=== PATIENT | female | born 1945 | race Caucasian/White ===

== ENCOUNTER 2018-07-28 19:39 | Inpatient (IN) | payer MEDICARE, BC, OTHER ==
[~2018-07-28] VITALS: Ht 165.1 cm; Wt 83.5 kg
[~2018-07-28 19:39] MED LIST: DEPAKOTE 250MG250 M1 PO; ENOXAPARIN40 MG/0.1 SUBQ; IMDUR 30 MG TAB30 M1 PO; LASIX 40 MG TAB40 M2 PO; LOPRESSOR50 PO; MACRODANTIN100 MG PO; PRAVACHOL40 MG PO; TRAMADOL 50 MG50 MG PO; VITAMIN D3400 UNIT PO; WELLBUTRIN XL150 MG PO
[2018-07-28 19:47] VITALS: BP 108/57
[2018-07-28] MEDS ORDERED: BACTRIM DS TAB1 EAC1 PO (19:56)
[2018-07-28 23:31] LABS: CALCIUM 8.9 mg/dL (8.5-10.1); CREATININE 1.2 mg/dL (0.6-1.3); POTASSIUM 4.5 mmol/L (3.5-5.1)
[2018-07-28 23:35] LABS: ABSOLUTE EOSINOPHILS 0.1 thou/uL (0.0-0.7); ABSOLUTE NEUTROPHILS 7.2 thou/uL (1.6-8.1); BASOPHILS 0.5 %; HEMATOCRIT 38.7 % (37.0-47.0); HEMOGLOBIN 12.5 gm/dL (12.0-15.0); LYMPHOCYTES 10.5 %; MCH 31.4 pg (26.0-34.0); MCHC 32.4 g/dL (28.0-37.0); MCV 96.9 fL (80.0-100.0); MPV 8.5 fl. (7.2-11.1); NUCLEATED RBCS 0 /100WBC; PLATELET COUNT* 198 thou/uL (150-400); RBC 3.99 mil/uL (4.20-5.00); RDW-CV 15.2 % (10.5-14.5); WBC 9.4 thou/uL (4.0-11.0)
[2018-07-28 23:45] VITALS: BP 126/54
[2018-07-28 23:58] VITALS: BP 115/57
--- NOTE | 2018-07-29 00:45 | NUR ---
PT ADMITTED TO UNIT. PT UP WITH ASSIST X1-2 WITH CANE AND GAIT BELT. PT ON ROOM AIR. ALERT AND ORIENTED X4. PT C/O PAIN, MEDS GIVEN ORDERED. NEW ORDERS FROM [facility] GIVEN. SLEEP AID RESTARTED. SPLINT IN PLACE. SWEELING TO RT HAND, SENSATION INTACT, ARM ELEVATED. PT CAN MOVE ARM. SCD IN PLACE. FALL RISK PRECAUTIONS IN PLACE. ORTHO CONSULT TO BE CALLED IN MORNING. WILL CONTINUE TO MONITOR.
[2018-07-29 07:40] VITALS: BP 103/55
--- NOTE | 2018-07-29 17:27 | NUR ---
ASSUMED CARE OF PATIENT AT APPROX 0730. ALERT AND ORIENTED X4. ASSESSMENT COMPLETED AND CHARTED. VSS ON ROOM AIR. NO COMPLAINTS OF NAUSEA, OR SOA. PAIN HAS BEEN MANAGED WITH ORAL AND IV MEDICATIONS. SPLINT AND SEBASTIEN WRAP IN PLACE ON RIGHT WRIST. SEEN BY ORTHO ON UNIT TODAY, ORDERED A BRACE AND PT/OT. CASE MAMGALLOGEMENT CONSULTED FOR REHAB, POSSIBLE ASSISTED LIVING PLACEMENT. FALL PRECAUTIONS IN PLACE. CALL LIGHT WITHIN REACH. HOURLY ROUNDS COMPLETED. NURSING WILL CONTINUE TO MONITOR.
[2018-07-29 17:33] VITALS: BP 122/60
[2018-07-29 20:45] VITALS: BP 127/53
--- NOTE | 2018-07-30 04:49 | NUR ---
PATIENT HAS REMAINED ALERT AND ORIENTED X 4 THROUGHOUT THE SHIFT AND RESTING QUIETLY ON HOURLY ROUNDS. CALLING APPROPRIATELY FOR BATHROOM. TRANSFERS WITH CGA TO MIN GAIT BELT AND HAND HOLD. NEW SPLINT PROVIDED FOR RIGHT WRIST AT START OF SHIFT. PATIENT REPORTS IT FEELS MUCH BETTER. MEDICATION X 1 FOR PAIN OF THIS WRITING. ICE PACKS APPLIED X 1. RIGHT UE ELEVATED ON PILLOW. VITAL SIGNS STABLE. CONTINUE TO MONITOR.
[2018-07-30 07:50] VITALS: BP 133/65
--- NOTE | 2018-07-30 12:17 | EKG ---
[place] [address] ELECTROCARDIOGRAM REPORT Name: NIKOLAI BELL Room: [address] ADM IN M.R.#: [id number] Admission: 07/29/18 Attend Phys: Abraham Shukla MD Discharge: Date of : 41 Report #: [id number] THIS REPORT FOR: //name// [facility] Test Date: 2018-07-30 Test Time: 10:44:26 Pat Name: NIKOLAI BELL Department: Room: [address] Gender: F Manager Insurance: : 1945 Requested By: Fernando Anderson Order Number: [id number] MD: Philip Bro Measurements Intervals [place] Rate: 70 P: 19 IA: 187 QRS: 17 QRSD: 96 T: 35 QT: 406 QTc: 439 Interpretive Statements Sinus rhythm Abnormal R-wave progression, early transition No previous ECG available for comparison Electronically Signed On 07-30-2018 12:16:45 CDT by Philip Bro [email or web address] <ELECTRONICALLY SIGNED> By: Philip Bro MD, [facility] 07/30/18 1216 1044 1044 Philip Bro MD, FACC /EPI
--- NOTE | 2018-07-30 17:59 | NUR ---
ASSUMED CARE OF PATIENT AT APPROX 0730. ALERT AND ORIENTED X4. ASSESSMENT COMPLETED AND CHARTED. VSS ON ROOM AIR. NO COMPLAINTS OF NAUSEA OR SOA. PAIN HAS BEEN MANAGED WITH ORAL MEDICATION. PATIENT NEEDS REINFORCEMENT ON FALL PRECAUTIONS AND CALL FOR ASSISTANCE APPROPRIATELY. BRACE IN PLACE ON RIGHT ARM/HAND. PATIENT HAS TREMOR IN LEFT ARM THAT MAKES EATING AND DOING CARES DIFFICULT. PATIENT UP WITH GAIT BELT. FALL PRECAUTIONS IN PLACE. CALL LIGHT WITHIN REACH. HOURLY ROUNDS COMPLETED. NURSING WILL CONTINUE TO MONITOR.
[2018-07-30 18:14] VITALS: BP 114/58
[2018-07-30 20:15] VITALS: BP 117/54
[2018-07-31 08:15] VITALS: BP 126/59
[2018-07-31 10:22] VITALS: BP 126/59
[2018-07-31] MEDS ORDERED: NORCO 5-325 TA1 EACH PO (10:32)
--- NOTE | 2018-07-31 14:22 | NUR ---
PT.JUST WORKED WITH P.T. FOR THE FIRST TIME. SHE HAD DECLINED ON SAT. DUE TO PAIN. THERAPIST SAID SHE WOULD BE OK TO GO TO SNF FOR A SHORT STAY 1-2WEEKS OR HOME WITH HOME HEALTH. PT.LIVES ALONE. DAUGHTER,JENNIFER ,COMES EVERY DAY AT LUNCH AND HAS LUNCH WITH HER. PT.SAID SHE COOKS SOME,DOES HER OWN LAUNDRY. HAS A CLEANING LADY THAT COMES EVERY 3 WEEKS. SHE WILL DO HER LAUNDRY IF NEEDED. PT.CONTINUES TO DRIVE. DAUGHTER,JENNIFER, CALLED WHILE CM SPEAKING WITH PT. JENNIFER AND PT.FEEL IT WOULD BE BETTER TO GO TO SNF FOR SHORT STAY. SHE WOULD LIKE [facility] [place]. LEFT MESSAGE FOR [place]/ADMISSIONS AT [phone] AND FAXED REFERRAL INFORMATION TO [phone].
--- NOTE | 2018-07-31 16:35 | 2DMMODE ---
[place] [address] 2 D/M-MODE ECHOCARDIOGRAM Name: ARABELLANIKOLAI Merida Room: [address] IN [facility]#: [id number] Admission: 07/29/18 Attend Phys: Abraham Shukla, Discharge: Date of : 41 Date of Service: 07/31/18 1635 Report #: [id number] THIS REPORT FOR: //name// APPROVED REPORT Study performed: 07/31/2018 09:42:59 EXAM: Comprehensive 2D, Doppler, and color-flow Echocardiogram Patient Location: In-Patient Room #: [facility] Status: routine BSA: 1.91 HR: 75 bpm BP: 117/54 mmHg Rhythm: NSR Other Information Study Quality: Good Indications CVA/TIA Echo Enhancing Agent Indication: Rule out Shunt Agent(s) / Amount(s) Used: Agitated Saline 10 cc 2D Dimensions IVSd: 8.37 (7-11mm) LVOT Diam: 21.71 (18-24mm) LVDd: 46.87 mm PWd: 9.21 (7-11mm) Ascending Ao: 37.84 (22-36mm) LVDs: 35.33 (25-40mm) Aortic Root: 37.87 mm Volumes Left Atrial Volume (Systole) LA ESV Index: 20.40 mL/m2 Aortic Valve AoV Peak Alphonso.: 1.38 m/s AO Peak Gr.: 7.65 mmHg LVOT Max P.88 mmHg AO Mean Gr.: 4.45 mmHg LVOT Mean P.35 mmHg LVOT Max V: 1.10 m/s AO V2 VTI: 33.56 cm LVOT Mean V: 0.70 m/s MARITZA (VTI): 2.60 cm2 LVOT V1 VTI: 23.61 cm AI Phillips: 2.30 m/s2 [place] [address] 2 D/M-MODE ECHOCARDIOGRAM Name: NIKOLAI BELL Room: [address] IN .R.#: [id number] Admission: 07/29/18 Attend Phys: Abraham Shukla, Discharge: Date of : 41 Date of Service: 07/31/18 1635 Report #: [id number] AI PHT: 499.64 ms Mitral Valve MV Mean Gr.: 1.71 mmHg E/A Ratio: 0.58 MV Decel. Time: 403.12 ms MV E Max Alphonso.: 0.51 m/s MV PHT: 116.90 ms MVA (PHT): 1.88 cm2 TDI E/Lateral E': 4.64 E/Medial E': 6.38 Medial E' Alphonso.: 0.08 m/s Lateral E' Alphonso.: 0.11 m/s Pulmonary Valve PV Peak Alphonso.: 0.76 m/s PV Peak Gr.: 2.32 mmHg Left Ventricle The left ventricle is normal size. There is normal LV segmental wall motion. There is normal left ventricular wall thickness. Left ventricular systolic function is normal. The left ventricular ejection fraction is within the normal range. LVEF is 55-60%. Grade I - abnormal relaxation pattern. Right Ventricle The right ventricle is normal size. The right ventricular systolic function is normal. Atria The left atrium size is normal. Interatrial septum is intact without evidence of ASD or PFO. The right atrium size is normal. Aortic Valve Mild aortic valve sclerosis. Mild to moderate aortic regurgitation. There is no aortic valvular stenosis. Mitral Valve The mitral valve is normal in structure. Trace mitral regurgitation. No evidence of mitral valve stenosis. Tricuspid Valve The tricuspid valve is normal in structure. Unable to assess PA pressure. Trace tricuspid regurgitation. Pulmonic Valve The pulmonary valve is normal in structure. [place] [address] 2 D/M-MODE ECHOCARDIOGRAM Name: NIKOLAI BELL Room: [address] IN M.R.#: [id number] Admission: 07/29/18 Attend Phys: Abraham Shukla, Discharge: Date of : 41 Date of Service: 07/31/18 1635 Report #: [id number] valvular regurgitation. Great Vessels The aortic root is normal in size. IVC is normal in size and collapses >50% with inspiration. Pericardium There is no pericardial effusion. <Conclusion> The left ventricle is normal size. There is normal left ventricular wall thickness. Left ventricular systolic function is normal. The left ventricular ejection fraction is within the normal range. LVEF is 55-60%. Grade I - abnormal relaxation pattern. The right ventricle is normal size. The left atrium size is normal. Mild aortic valve sclerosis. Mild to moderate aortic regurgitation. There is no aortic valvular stenosis. The mitral valve is normal in structure. Trace mitral regurgitation. The tricuspid valve is normal in structure. IVC is normal in size and collapses >50% with inspiration. There is no pericardial effusion. There is normal LV segmental wall motion. <ELECTRONICALLY SIGNED> By: Giovanny Aguero MD, FACC 07/31/18 1635 1635 1635 Giovanny Aguero MD, FACC /INF
[2018-07-31 16:50] VITALS: BP 127/61
--- NOTE | 2018-07-31 17:33 | NUR ---
PT REMAINED ALERT AND ORIENTED. PT C/O PAIN, CREAM GIVEN ORDERED. SPLINT TO LT HAND IN PLACE. AWAITING SKILLED PLACEMENT. X1 ASSIST TO BATHROOM. FALL RISK PRECAUTIONS IN PLACE. HOURLY ROUNDING COMPLETED. WILL CONTINUE TO MONITOR.
[2018-07-31] MEDS ORDERED: RESTORIL15 MG PO (21:41)
--- NOTE | 2018-08-01 07:47 | NUR ---
PATIENT HAS SLEPT WELL THROUGHOUT THE NIGHT. VSS ON RA. NO C/O PAIN. SPLINT TO RIGHT ARM IN PLACE. PATIENT UP WITH CANE WITH ASSIST X 1 TO BATHROOM. IV IN LEFT AC-SL. PATIENT INSTRUCTED TO USE CALL LIGHT WHEN NEEDING ASSISTANCE. HOURLY ROUNDS MADE. WILL CONTINUE WITH PLAN OF CARE AND NURSING TO MONITOR.
[2018-08-01 08:42] VITALS: BP 117/64
--- NOTE | 2018-08-01 11:46 | NUR ---
[facility] REPORTS THEY ARE HAVING TROUBLE SKILLING PT. FAXED P.T. ASSESSMENT AND PROGRESS NOTE TO HER. PT ASSESSMENT NOT AVAILABLE IN COMPUTER YESTERDAY AFTERNOON.
--- NOTE | 2018-08-01 14:46 | NUR ---
BEBE TA/[facility] CALLED AND SAID THEY CAN ACCEPT PT.TO A SKILLED BED AT [facility] TODAY. DISCHARGE ORDERS FAXED TO HER. CHART COPIED TO GO WITH PT. [facility] HAS PHONE NUMBER TO CALL REPORT. NAKITA INFORMED PT. SHE WAS TALKING TO DAUGHTER,JENNIFER ON PHONE. JENNIFER WILL BE HERE ABOUT [address] PT[address]TO [facility].
[2018-08-01 16:03] VITALS: BP 126/59
[2018-08-01 17:01] VITALS: BP 126/59
--- NOTE | 2018-08-01 17:03 | NUR ---
PT GIVEN DISCHARGE PACKET FOR FACILTY. PRESCRIPTIONS AND ORDERS IN PACKET. REPORT CALLED. IV REMOVED. PT LEFT WITH DAUGHTER TO FACILITY VIA WHEELCHAIR WITH NURSING STAFF. HOURLY ROUNDING COMPLETED. FALL RISK PRECAUTIONS IN PLACE.
== END 2018-08-01 17:04 | DRG 562 ==
LOC: M.ERS 19:39 → M.TBA-ER 22:53 → M.ORTHSURG 23:28
PROVIDERS: Physician Assistant; ADMIT Internal Medicine
PROC: 2W3CX1Z Immobilization of Right Lower Arm using Splint (ICD-10-PCS; principal; 2018-07-29)
DX: S63.501A Unspecified sprain of right wrist, initial encounter (principal); G93.41 Metabolic encephalopathy; E44.0 Moderate protein-calorie malnutrition; I69.351 Hemiplegia and hemiparesis following cerebral infarction affecting right dominant side; M81.0 Age-related osteoporosis without current pathological fracture; Z96.652 Presence of left artificial knee joint; W18.39XA Other fall on same level, initial encounter; S80.02XA Contusion of left knee, initial encounter; I25.10 Atherosclerotic heart disease of native coronary artery without angina pectoris; I10 Essential (primary) hypertension; Z87.891 Personal history of nicotine dependence; Z88.6 Allergy status to analgesic agent; Z88.8 Allergy status to other drugs, medicaments and biological substances; Y93.89 Activity, other specified; Y92.094 Garage of other non-institutional residence as the place of occurrence of the external cause; Y99.8 Other external cause status; Z68.30 Body mass index [BMI] 30.0-30.9, adult

== ENCOUNTER 2019-06-18 11:50 | Emergency (ER) | payer MEDICARE, BC, OTHER ==
[~2019-06-18] VITALS: Ht 162.6 cm; Wt 79.4 kg
[~2019-06-18 11:50] MED LIST changes: +BACTRIM DS TAB1 EAC1 PO; +NORCO 5-325 TA1 EACH PO; +RESTORIL15 MG PO
[2019-06-18] MEDS ORDERED: NORCO 5-325 TA1 EAC1 PO (13:10)
[2019-06-18 14:03] VITALS: BP 105/61
== END 2019-06-18 14:05 | disposition home or self-care (01) ==
LOC: M.ERS 11:50
DX: M51.36 Other intervertebral disc degeneration, lumbar region (principal); I10 Essential (primary) hypertension; Z86.73 Personal history of transient ischemic attack (TIA), and cerebral infarction without residual deficits; Z96.652 Presence of left artificial knee joint; Z88.5 Allergy status to narcotic agent; Z88.8 Allergy status to other drugs, medicaments and biological substances; Z87.891 Personal history of nicotine dependence

== ENCOUNTER 2021-05-13 19:08 | Inpatient (IN) | payer MEDICARE, BC ==
[~2021-05-13] VITALS: Ht 165.1 cm; Wt 82.5 kg
[~2021-05-13 19:08] MED LIST changes: +NORCO 5-325 TA1 EAC1 PO
[2021-05-13 19:28] VITALS: BP 141/108
[2021-05-13 20:37] LABS: ABSOLUTE BASOPHILS 0.1 thou/uL (0.0-0.2); ABSOLUTE EOSINOPHILS 0.2 thou/uL (0.0-0.7); ABSOLUTE LYMPHOCYTES 1.9 thou/uL (0.8-5.3); ABSOLUTE MONOCYTES 0.5 thou/uL (0.0-1.2); ABSOLUTE NEUTROPHILS 3.9 thou/uL (1.6-8.1); EOSINOPHILS 3.2 %; HEMOGLOBIN 13.4 gm/dL (12.0-15.0); LYMPHOCYTES 29.2 %; MCH 31.8 pg (26.0-34.0); MCHC 32.7 g/dL (28.0-37.0); MCV 97.3 fL (80.0-100.0); MONOCYTES 7.5 %; MPV 7.6 fl. (7.2-11.1); NUCLEATED RBCS 0 /100WBC; PLATELET COUNT* 176 thou/uL (150-400); POLYS 59.1 %; RBC 4.22 mil/uL (4.20-5.00); RDW-CV 15.2 % (10.5-14.5); WBC 6.6 thou/uL (4.0-11.0)
[2021-05-13 20:49] LABS: CALCIUM 8.7 mg/dL (8.5-10.1); CREATININE 0.9 mg/dL (0.6-1.3); POTASSIUM 3.8 mmol/L (3.5-5.1)
[2021-05-13 20:57] LABS: ALBUMIN 3.1 g/dL (3.4-5.0); MAGNESIUM 1.9 mg/dL (1.8-2.4); TOTAL BILIRUBIN 0.3 mg/dL (<0.1-1.0); TOTAL PROTEIN 7.1 g/dL (6.4-8.2)
[2021-05-13 22:15] LABS: URINE BILIRUBIN NEGATIVE (Negative); URINE BLOOD TRACE (Negative); URINE CLARITY SL CLOUDY; URINE COLOR YELLOW; URINE GLUCOSE-RANDOM NEGATIVE (Negative); URINE KETONES NEGATIVE (Negative); URINE LEUKOCYTES-REFLEX 1+ (Negative); URINE PROTEIN NEGATIVE (Negative)
[2021-05-13 22:26] LABS: URINE NITRITE-REFLEX POSITIVE (Negative)
[2021-05-13 22:29] LABS: CASTS None Seen /LPF (None Seen); CRYSTALS None Seen /LPF (None Seen); MUCUS 0-3 Light strn/LPF (None Seen); SQUAMOUS 4-10 Moderate /LPF (0-3); URINE RBC 0-2 Rare /HPF (0-2); URINE WBC-REFLEX 6-15 Few /HPF (0-5)
[2021-05-14 03:20] VITALS: BP 131/64
--- NOTE | 2021-05-14 11:19 | EKG ---
[place] [address] ELECTROCARDIOGRAM REPORT Name: ARABELLANIKOLAI Fuad Room: [place] [address] ADM IN [facility]#: [id number] Admission: 05/14/21 Attend Phys: Demetrius Urrutia Discharge: Date of : 41 Date of Service: 05/13/212020 Report #: [id number] THIS REPORT FOR: //name// [facility] ED Test Date: 2021-05-13 Test Time: 20:21:08 Pat Name: NIKOLAI BELL Department: Room: [facility] Gender: F [employer]rol[employer] Dispatcher: : 1945 Requested By: Suyapa Young Order Number: [id number] MD: Giovanny Aguero Measurements Intervals [place] Rate: 65 P: 64 [place]: 209 QRS: 63 QRSD: 114 T: 65 QT: 404 QTc: 421 Interpretive Statements Sinus rhythm Borderline intraventricular conduction delay Compared to ECG 07/30/2018 10:44:26 No significant changes Electronically Signed On 05-14-2021 11:19:00 HAND STONECUTTER by Giovanny Aguero [email or web address] <ELECTRONICALLY SIGNED> By: Giovanny Aguero MD, [facility] 05/14/21 1119 20 20 Giovanny Aguero MD, [facility] /EPI
[2021-05-15] VITALS: BP 144/68
[2021-05-15 04:07] VITALS: BP 130/54
[2021-05-15 08:00] VITALS: BP 139/62
[2021-05-15 11:36] VITALS: BP 125/58
[2021-05-15] MEDS ORDERED: LEVOFLOXACIN500 MG PO (11:38)
[2021-05-15 14:08] VITALS: BP 125/58
[2021-05-15 14:15] VITALS: BP 125/58
--- NOTE | 2021-05-16 12:09 | EKG ---
[place] [address] ELECTROCARDIOGRAM REPORT Name: GARRETT BELLEN Fuad Room: [address] IN [facility]#: [id number] Admission: 05/14/21 Attend Phys: Demetrius Urrutia Discharge: 05/15/21 Date of : 41 Date of Service: 05/14/211930 Report #: [id number] THIS REPORT FOR: //name// [facility] ED Test Date: 2021-05-14 Test Time: 19:31:57 Pat Name: NIKOLAI BELL Department: Room: [facility] Gender: F Fancy Packer: : 1945 Requested By: Suyapa Young Order Number: [id number] MD: Philip Bro Measurements Intervals [place] Rate: 60 P: 56 [place]: 190 QRS: 64 QRSD: 92 T: 67 QT: 430 QTc: 430 Interpretive Statements Sinus rhythm Compared to ECG 05/13/2021 20:21:08 No significant changes Electronically Signed On 05-16-2021 12:08:52 FILTERER by Philip Bro [email or web address] <ELECTRONICALLY SIGNED> By: Philip Bro MD, FACC 05/16/21 1208 30 30 Philip Bro MD, FACC /EPI
== END 2021-05-15 16:43 | disposition home health service (06) | DRG 689 ==
LOC: M.ERS 19:08 → M.TBA-ER 23:04 → M.2W 05-15 00:10
PROVIDERS: Emergency Medicine; ADMIT Internal Medicine; ATTEND Internal Medicine
DX: N30.01 Acute cystitis with hematuria (principal); J15.9 Unspecified bacterial pneumonia; E78.5 Hyperlipidemia, unspecified; I10 Essential (primary) hypertension; Z20.822 Contact with and (suspected) exposure to COVID-19; Z87.440 Personal history of urinary (tract) infections; Z88.8 Allergy status to other drugs, medicaments and biological substances